=== PATIENT | female | born 1965 | race Caucasian/White ===

== ENCOUNTER 2018-12-07 11:26 | Emergency (ER) | payer MEDICAID ==
[2018-12-07] MEDS: KETOROLAC 15 MG INJ IM (12:25)
== END 2018-12-07 14:41 | disposition home or self-care (01) ==
LOC: FTE 14:41
DX: S22.31XA Fracture of one rib, right side, initial encounter for closed fracture (principal); X58.XXXA Exposure to other specified factors, initial encounter; Y92.9 Unspecified place or not applicable
CPT/HCPCS: 71100; 96372; 99284-25